=== PATIENT | male | born 1940 | race Native Hawaiian/Other Pacific Islander ===

== ENCOUNTER 2019-07-31 20:12 | Emergency (ER) | payer OTHER ==
[~2019-07-31] VITALS: Ht 167.6 cm; Wt 57.6 kg
[2019-07-31 20:12] VITALS: BP 192/89; TEMP 98.1
[2019-07-31 20:56] LABS: PLATELET COUNT 152 K/uL (142-355)
[2019-07-31 21:07] LABS: POTASSIUM 3.6 mmol/L (3.6-5.2)
[2019-07-31] MEDS ORDERED: LISI20TA11 PO (23:31)
[2019-07-31] MEDS ORDERED: VITAMIN D31000 UNI4 PO (23:32)
[2019-07-31] MEDS ORDERED: METF500T PO (23:33)
[2019-07-31] MEDS ORDERED: B12-ACTIVE1 MG PO (23:33)
[2019-07-31] MEDS ORDERED: MEMA5TAB PO (23:34)
[2019-07-31] MEDS ORDERED: ASPIR-8181 MG PO (23:34)
[2019-07-31] MEDS ORDERED: CARV6.25 PO (23:35)
[2019-07-31] MEDS ORDERED: AMLODIPINE BESYLATE PO (23:35)
[2019-07-31] MEDS ORDERED: MYSOLINE50 MG PO (23:36)
[2019-07-31] MEDS ORDERED: PRAVACHOL20 MG PO (23:36)
[2019-07-31] MEDS ORDERED: SEROQUEL25 MG PO (23:37)
[2019-07-31] MEDS ORDERED: TYLENOL325 MG PO (23:38)
[2019-07-31] MEDS ORDERED: CRANBERRY250 MG PO (23:38)
== END 2019-07-31 21:32 | disposition other institution (70) ==
LOC: ED 20:16
PROVIDERS: Emergency Medicine
DX: G30.8 Other Alzheimer's disease (principal); F02.81 Dementia in other diseases classified elsewhere, unspecified severity, with behavioral disturbance; Z04.6 Encounter for general psychiatric examination, requested by authority
CPT/HCPCS: 36415; 80053; 81000; 85027; 93005; 99283; 99285

== ENCOUNTER 2019-11-08 19:10 | Emergency (ER) | payer OTHER ==
[~2019-11-08] VITALS: Ht 170.2 cm; Wt 61.7 kg
[2019-11-08 19:10] VITALS: BP 134/99; TEMP 98.1
[~2019-11-08 19:10] MED LIST: AMLODIPINE BESYLATE PO; ASPIR-8181 MG PO; B12-ACTIVE1 MG PO; CARV6.25 PO; CRANBERRY250 MG PO; DIVA125C PO; ESCI10TA PO; INSUINJ20 SC; LISI20TA11 PO; MAGN400T4 PO; MAGNSUS68 PO; MEMA5TAB PO; METF500T PO; MYSOLINE50 MG PO; OLAN2.5T2 PO; PRAVACHOL20 MG PO; SEROQUEL25 MG PO; TYLENOL325 MG PO; VITAMIN D31000 UNI4 PO
[2019-11-08 19:53] LABS: PLATELET COUNT 140 K/uL (142-355)
[2019-11-08 19:57] LABS: POTASSIUM 3.5 mmol/L (3.6-5.2)
[2019-11-08] MEDS ORDERED: THIA100T8 PO (22:36)
[2019-11-08] MEDS ORDERED: MINERALS PO (22:39)
[2019-11-08] MEDS ORDERED: FOLI1TAB26 PO (22:41)
[2019-11-08] MEDS ORDERED: EQL CLEARLAX PO (22:46)
[2019-11-08] MEDS ORDERED: METF500T PO (22:48)
[2019-11-08] MEDS ORDERED: DIVALPROEX250 M1 PO (22:51)
[2019-11-08] MEDS ORDERED: BUSPIRONE7.5 MG PO (22:53)
[2019-11-08] MEDS ORDERED: TRAZ50TA36 PO (23:09)
[2019-11-08] MEDS ORDERED: ZESTRIL40 MG PO (23:14)
== END 2019-11-08 20:56 | disposition other institution (70) ==
LOC: ED 19:24
PROVIDERS: Emergency Medicine
DX: F28 Other psychotic disorder not due to a substance or known physiological condition (principal); Z11.59 Encounter for screening for other viral diseases; Z04.6 Encounter for general psychiatric examination, requested by authority
CPT/HCPCS: 36415; 80053; 81000; 85027; 87635; 93005; 99283; G2023; U00003